=== PATIENT | female | born 1995 | race Caucasian/White ===

== ENCOUNTER 2018-03-01 17:00 | Emergency (ER) | payer BC ==
[~2018-03-01] VITALS: Ht 157.5 cm; Wt 86.2 kg
[2018-03-01 17:25] VITALS: BP 115/64
== END 2018-03-01 17:25 | disposition home or self-care (01) ==
LOC: ER 17:00
DX: L03.115 Cellulitis of right lower limb (principal)
CPT/HCPCS: 99283